=== PATIENT | male | born 1965 | race Caucasian/White ===

== ENCOUNTER 2016-12-24 05:54 | Day surgery (SDC) | payer OTHER ==
[2016-12-21 14:17] VITALS: Ht 167.6 cm; Wt 88.5 kg
[2016-12-24] VITALS (14 sets, daily range): BP systolic 93–140; BP diastolic 48–92; PULSE 60–76; RESP 15–20
[~2016-12-24] VITALS: Ht 167.6 cm; Wt 88.5 kg
[2016-12-24] MEDS ORDERED: LACTATED RINGER'S 1,000 ML IV* SCH (06:00)
[2016-12-24] MEDS ORDERED: CEFAZOLIN 2 GM/50 ML (PMX) 50 ML IVPB SCH (06:00)
--- NOTE | 2016-12-24 06:50 | HPN ---
Date/Time of Note Date/Time of Note DATE: 12/24/16 TIME: 06:49 Interval H&P Admission Note Pt. seen H&P reviewed: No system changes STANLEY MANCIA MD Dec 24, 2016 06:50
[2016-12-24 06:58] LABS: BASOPHIL # 0.1 10^3/ul (0.0-0.1); BASOPHILS % 0.7 % (0.0-2.0); EOSINOPHILS # 0.4 10^3/ul (0.0-0.5); EOSINOPHILS % 4.3 % (0.0-7.0); HEMATOCRIT 39.2 % (42.0-52.0); HEMOGLOBIN 13.5 g/dl (14.0-18.0); LYMPHOCYTES # 3.1 10^3/ul (0.8-2.9); LYMPHOCYTES % 30.6 % (15.0-51.0); MEAN CORPUSCULAR HEMOGLOBIN 31.3 pg (29.0-33.0); MEAN CORPUSCULAR HGB CONC 34.4 g/dl (32.0-37.0); MEAN CORPUSCULAR VOLUME 90.7 fl (82.0-101.0); MEAN PLATELET VOLUME 9.5 fl (7.4-10.4); MONOCYTE # 0.8 10^3/ul (0.3-0.9); MONOCYTES % 8.3 % (0.0-11.0); NEUTROPHIL # 5.6 10^3/ul (1.6-7.5); NEUTROPHILS % 55.7 % (39.0-77.0); PLATELET COUNT 304 10^3/UL (140-415); RED BLOOD COUNT 4.32 10^6/ul (4.70-6.10); RED CELL DISTRIBUTION WIDTH 11.9 % (11.5-14.5)
[2016-12-24] MEDS ORDERED: BUPR75TA9 PO (07:11)
[2016-12-24 07:23] LABS: INR 1.04; PROTIME 13.6 Sec (12.2-14.2); PT RATIO 1.1
[2016-12-24 07:24] LABS: PARTIAL THROMBOPLASTIN TIME 28.5 Sec (25.0-35.0)
[2016-12-24] MEDS ORDERED: PROPOFOL 20 ML ONE (07:27)
[2016-12-24 07:28] LABS: CREATININE 0.72 mg/dl (0.61-1.24); POTASSIUM 3.8 mmol/L (3.5-5.1)
[2016-12-24] MEDS ORDERED: LIDOCAINE 2% (SDV) 5 ML INJ ONE (07:28)
[2016-12-24] MEDS ORDERED: MIDAZOLAM 1 MG/ML 2 ML INJ ONE (07:28)
[2016-12-24] MEDS ORDERED: ROCURONIUM 50 MG INJ ONE (07:28)
[2016-12-24] MEDS ORDERED: CEFAZOLIN 1 GM INJ ONE (07:35)
[2016-12-24] MEDS ORDERED: LABETALOL HCL 20MG INJ ONE (07:56)
[2016-12-24] MEDS ORDERED: DEXAMETHASONE 4 MG/ML 1 ML INJ ONE ×2 (09:30→09:31)
[2016-12-24] MEDS ORDERED: ROPIVACAINE 0.5 % 30 ML VIAL ONE (09:31)
[2016-12-24] MEDS ORDERED: ONDANSETRON 4 MG INJ ONE ×2 (09:33→10:15)
--- NOTE | 2016-12-24 09:58 | SIPON ---
Date/Time of Note Date/Time of Note DATE: 12/24/16 TIME: 09:54 Operative Report Preoperative Diagnosis Closed segmental fracture of left ulna, left shoulder dislocation post-traumatic axillary nerve palsy Postoperative Diagnosis Closed segmental fracture of left ulna, left shoulder dislocation post-traumatic axillary nerve palsy Operation/Procedure Performed Open reduction, internal fixation of left ulna Exam under anesthesia of left shoulder Surgeon see signature line office assistant receptionist Marvel Pitno MD Anesthesia: general Estimated blood loss: minimal Transfusion Required none Specimen None Grafts/Implants synthes small fragment locking plate, 12 hole; 3.5 mm screws Complications none STANLEY MANCIA MD Dec 24, 2016 09:57
[2016-12-24] MEDS ORDERED: ONDANSETRON 4 MG INJ IV PRN (10:30)
[2016-12-24] MEDS ORDERED: OXYCODONE/ACETAMINOPHEN (5/325) TAB PO PRN ×2 (10:30)
[2016-12-24] MEDS ORDERED: EPHEDrine SULFATE 50 MG/5 ML SYG IV PRN (10:30)
[2016-12-24] MEDS ORDERED: MEPERIDINE 25 MG INJ IV PRN (10:30)
[2016-12-24] MEDS ORDERED: FENTAnyl 50 MCG/ML VIAL IV PRN ×3 (10:30)
[2016-12-24] MEDS ORDERED: LABETALOL HCL 20MG INJ IV PRN (10:30)
[2016-12-24] MEDS ORDERED: KETOROLAC 30 MG INJ IV PRN (10:30)
[2016-12-24] MEDS ORDERED: METOCLOPRAMIDE 10 MG INJ IV PRN (10:30)
[2016-12-24] MEDS ORDERED: DIPHENHYDRAMINE 50 MG INJ IV PRN (10:30)
[2016-12-24] MEDS ORDERED: hydrALAzine 20 MG INJ IV PRN (10:30)
[2016-12-24] MEDS ORDERED: morphine (1 MG/ML) 10ML SYRINGE IV PRN ×3 (10:30)
--- NOTE | 2016-12-24 11:15 | RADRPT ---
PROCEDURE: Intraoperative imaging of the left forearm with fluoroscopy. CLINICAL INDICATION: Left forearm pain. Intraoperative. TECHNIQUE: 21 images of the left forearm were obtained in the operating room with an image intensi fier. No radiologist was in attendance. Fluoroscopy time is 44 seconds. COMPARISON: No prior study is available for comparison. FINDINGS: Images demonstrate open reduction and internal fixation of the comminuted fracture of the left ulna with a plate and multiple screws. IMPRESSION: 1. Intraoperative imaging of the left forearm. RPTAT: QQ .Trevor Jc MD, Date Time Electronically viewed and signed by .Trevor Jc MD, MD on 12/24/2016 11:15 .R/
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
== END 2016-12-24 12:00 | disposition home or self-care (01) ==
LOC: SUR 05:54 → SDS 05:54 → SUR 12:00
PROVIDERS: ATTEND Orthopaedic Surgery
DX: S52.602A Unspecified fracture of lower end of left ulna, initial encounter for closed fracture (principal); S52.002A Unspecified fracture of upper end of left ulna, initial encounter for closed fracture; V89.2XXA Person injured in unspecified motor-vehicle accident, traffic, initial encounter; S43.005A Unspecified dislocation of left shoulder joint, initial encounter; S44.32XA Injury of axillary nerve, left arm, initial encounter
CPT/HCPCS: 24685; 73090; 80048; 85025; 85610; 85730; C1713; J0690; J1100; J1200; J1885; J2250; J2405; J2765; J2795; J3010